=== PATIENT | female | born 1980 | race Two or more races ===

== ENCOUNTER 2016-10-19 20:04 | Emergency (ER) | payer SELFPAY ==
[~2016-10-19] VITALS: Ht 165.1 cm; Wt 74.8 kg
[2016-10-19 20:07] VITALS: BP 140/94
[2016-10-19] MEDS ORDERED: CLIN-44 PO (20:24)
[2016-10-19] MEDS ORDERED: HYDR-2679 PO (20:24)
[2016-10-19] MEDS ORDERED: NAPR500T8 PO (20:24)
--- NOTE | 2016-10-19 20:25 | PHYS DOC ---
Past Medical History Past Medical History: Diabetes-Type II Past Surgical History: No Surgical History Alcohol Use: None Drug Use: None Adult General Chief Complaint Chief Complaint: DENTAL PROBLEM HPI HPI Patient is a 36 year old female with history of diabetes type 2, who presents with dental pain and swelling for the last 2 weeks. Patient states she was seen by the dentist 2 weeks ago and was put on amoxicillin 500 mg which she still taking, she states the infection is not improving. Patient states she has a tooth that will be pulled out after the infection has cleared up. Review of Systems Review of Systems Constitutional: Denies fever or chills [] Eyes: Denies change in visual acuity, redness, or eye pain [] HENT: Dental pain and swelling Musculoskeletal: Denies back pain or joint pain [] Integument: Denies rash or skin lesions [] Neurologic: Denies headache, focal weakness or sensory changes [] Endocrine: Denies polyuria or polydipsia [] Allergies Allergies Allergies Coded Allergies Type Severity Reaction Last Updated Verified No Known Drug Allergies 01/11/14 No Physical Exam Physical Exam Constitutional: Well developed, well nourished, no acute distress, non-toxic appearance. [] HENT: Normocephalic, atraumatic, bilateral external ears normal, oropharynx moist, no oral exudates, nose normal. [] Left lower cheek is obviously swollen consistent with a mild dental abscess Approximately tooth #19 is broken. Small amount of dental caries noted on tooth #19. Left lower gums with mild erythema and swelling, no fluctuance. Skin: Warm, dry, no erythema, no rash. [] Back: No tenderness, no CVA tenderness. [] Extremities: No tenderness, no cyanosis, no clubbing, ROM intact, no edema. [] Neurologic: Alert and oriented X 3, normal motor function, normal sensory function, no focal deficits noted. [] Psychologic: Affect normal, judgement normal, mood normal. [] Current Patient Data Vital Signs Vital Signs Date Time Temp Pulse Resp B/P Pulse Ox O2 Delivery O2 Flow Rate FiO2 10/19/16 20:07 97.9 100 20 100 Room Air 97.9 EKG EKG [] Radiology/Procedures Radiology/Procedures [] Course & Med Decision Making Course & Med Decision Making Pertinent Labs and Imaging studies reviewed. (See chart for details) Patient has a dental abscess. She is currently on amoxicillin which she's taken for a couple days with no improvement. I will put her on a give clindamycin. She 'll be discharged with instructions to follow-up with her dentist next week. Charles Disclaimer Charles Disclaimer This electronic medical record was generated, in whole or in part, using a voice recognition dictation system. Departure Departure Impression: Primary Impression: Dental abscess Additional Impression: Dentalgia Disposition: HOME, SELF-CARE Condition: STABLE Referrals: UNKNOWN PCP NAME (PCP) follow up with your dentist next week Patient Instructions: Dental Abscess Additional Instructions: You were seen for a dental abscess. Please complete your current antibiotics.Stop the amoxicillin. Follow-up with your dentist as soon as you can. Scripts Naproxen 500 Mg Tablet.dr1 Tab PO BID #30 TAB Ref 2 Prov:LORENZA ROCHA APRN 10/19/16 Hydrocodone/Acetaminophen (Lortab 7.5-325 mg Tablet)1 Each Tablet1 Tab PO PRN Q6HRS PRN PAIN #20 TAB Ref 0 Prov:LORENZA ROCHA APRN 10/19/16 Clindamycin Hcl 150 Mg Capsule3 Cap PO TID #90 CAP Prov:LORENZA ROCHA APRN 10/19/16 Problem Qualifiers LORENZA ROCHA APRN Oct 19, 2016 20:25
== END 2016-10-19 20:30 | disposition home or self-care (01) ==
LOC: ER 20:04
DX: K04.7 Periapical abscess without sinus (principal); E11.9 Type 2 diabetes mellitus without complications
CPT/HCPCS: 99283

== ENCOUNTER 2016-12-18 14:56 | Inpatient (IN) | payer SELFPAY ==
[~2016-12-18] VITALS: Ht 165.1 cm; Wt 68.1 kg
[~2016-12-18 14:56] MED LIST: CLIN-44 PO; HYDR-2679 PO; NAPR500T8 PO
[2016-12-18] MEDS ORDERED: ONDANSETRON PF 4 MG/2 ML VIAL. IV ONE (15:30)
[2016-12-18] MEDS ORDERED: fentaNYL PF VIAL 100 MCG/2 ML VIAL IV PRN (15:30)
[2016-12-18 15:36] LABS: BASO # 0.1 x10^3/uL (0.0-0.2); BASO % 1 % (0-3); EOS % 1 % (0-3); HEMATOCRIT 35.4 % (36.0-47.0); HEMOGLOBIN 11.2 g/dL (12.0-15.5); LYMPH # 1.8 x10^3/uL (1.0-4.8); LYMPH % 27 % (24-48); MEAN CORPUSCULAR HEMOGLOBIN 23 pg (25-35); MEAN CORPUSCULAR HGB CONC 32 g/dL (31-37); MEAN CORPUSCULAR VOLUME 72 fL (79-100); MONO % 10 % (0-9); NEUT % 61 % (31-73); PLATELET COUNT 332 x10^3/uL (140-400); RED BLOOD COUNT 4.93 x10^6/uL (3.50-5.40); RED CELL DISTRIBUTION WIDTH 16.9 % (11.5-14.5); WHITE BLOOD COUNT 6.4 x10^3/uL (4.0-11.0)
[2016-12-18] MEDS: IV NORMAL SALINE 1000ML BAG 1,000 ML IV SCH ×4 (15:45→21:50)
[2016-12-18 15:58] LABS: ANISOCYTOSIS SLIGHT; HYPOCHROMIA MOD; MICROCYTOSIS MOD; PLT ESTIMATE ADEQUATE (ADEQUATE); POIKILOCYTOSIS SLIGHT
--- NOTE | 2016-12-18 16:06 | PHYS DOC ---
Past Medical History Past Medical History: Diabetes-Type II Past Surgical History: No Surgical History Alcohol Use: None Drug Use: None Adult General Chief Complaint Chief Complaint: NAUSEA/VOMITING/DIARRHA HPI HPI Patient is a 36 year old female who presents with complaint of nausea and vomiting. Patient states that she has been having worsening symptoms over the past 3 days. Patient states that she has history of type 2 diabetes mellitus currently on insulin therapy. Patient states that she has been out of her insulin for the past 2 weeks due to inability to afford the medication. Patient does admit to increasing polyuria and polydipsia. Patient states that she is very weak and tired and feels dehydrated at this time. Patient was brought to the emergency department by family after her glucometer at home reported her blood sugar to be "high." Patient denies any chest pain or abdominal pain currently. Patient does admit to worsening dyspnea on exertion. Patient denies any fevers. Review of Systems Review of Systems Constitutional: Denies fever or chills [] Eyes: Denies change in visual acuity, redness, or eye pain [] HENT: Denies nasal congestion or sore throat [] Respiratory: Shortness of breath [] Cardiovascular: Denies chest pain or edema [] GI: Nausea, vomiting, denies abdominal pain, bloody stools or diarrhea [] : Denies dysuria or hematuria [] Musculoskeletal: Denies back pain or joint pain [] Integument: Denies rash or skin lesions [] Neurologic: Denies headache, focal weakness or sensory changes [] Endocrine: Polyuria, polydipsia Current Medications Current Medications Current Medications Medications (Trade) Dose Ordered Sig/[facility] Start Time Stop Time Status Last Admin Dose Admin Acetaminophen (Tylenol) 650 mg PRN Q4HRS PRN 12/18/16 17:30 12/19/16 17:29 UNV Fentanyl Citrate (Fentanyl 2ml Vial) 50 mcg PRN Q15MIN PRN 12/18/16 15:30 12/19/16 15:29 Insulin Human Regular 150 ml @ 0 mls/hr 1X ONCE 12/18/16 16:45 12/18/16 16:46 DC 12/18/16 17:23 5.2 MLS/HR Ondansetron HCl (Zofran) 4 mg PRN Q8HRS PRN 12/18/16 17:30 12/19/16 17:29 UNV Sodium Chloride 1,000 ml @ 150 mls/hr Q6H40M 12/18/16 17:21 12/19/16 17:20 UNV Allergies Allergies Allergies Coded Allergies Type Severity Reaction Last Updated Verified No Known Drug Allergies 01/11/14 No Physical Exam Physical Exam Constitutional: Alert, afebrile, appears ill. [] HENT: Normocephalic, atraumatic, bilateral external ears normal, oropharynx dry , no oral exudates, nose normal. [] Eyes: PERRLA, EOMI, conjunctiva normal, no discharge. [] Neck: Normal range of motion, no tenderness, supple, no stridor. [] Cardiovascular: Tachycardia, regular rhythm, no murmur [] Lungs & Thorax: Bilateral breath sounds clear to auscultation [] Abdomen: Bowel sounds normal, soft, no tenderness, no masses, no pulsatile masses. [] Skin: Warm, dry, no erythema, no rash. [] Back: No tenderness, no CVA tenderness. [] Extremities: No tenderness, no cyanosis, no clubbing, ROM intact, no edema. [] Neurologic: Alert and oriented X 3, normal motor function, normal sensory function, no focal deficits noted. [] Current Patient Data Vital Signs Vital Signs Date Time Temp Pulse Resp B/P (MAP) Pulse Ox O2 Delivery O2 Flow Rate FiO2 12/18/16 15:08 98.7 123 16 148/95 (112) 100 Room Air 98.7 Lab Values Laboratory Tests Test 12/18/16 15:10 12/18/16 15:11 12/18/16 15:47 12/18/16 17:13 White Blood Count 6.4 x10^3/uL (4.0-11.0) Red Blood Count 4.93 x10^6/uL (3.50-5.40) Hemoglobin 11.2 g/dL (12.0-15.5) L Hematocrit 35.4 % (36.0-47.0) L Mean Corpuscular Volume 72 fL (79-100) L Mean Corpuscular Hemoglobin 23 pg (25-35) L Mean Corpuscular Hemoglobin Concent 32 g/dL (31-37) Red Cell Distribution Width 16.9 % (11.5-14.5) H Platelet Count 332 x10^3/uL (140-400) Neutrophils (%) (Auto) 61 % (31-73) Lymphocytes (%) (Auto) 27 % (24-48) Monocytes (%) (Auto) 10 % (0-9) H Eosinophils (%) (Auto) 1 % (0-3) Basophils (%) (Auto) 1 % (0-3) Neutrophils # (Auto) 3.9 x10^3uL (1.8-7.7) Lymphocytes # (Auto) 1.8 x10^3/uL (1.0-4.8) Monocytes # (Auto) 0.6 x10^3/uL (0.0-1.1) Eosinophils # (Auto) 0.1 x10^3/uL (0.0-0.7) Basophils # (Auto) 0.1 x10^3/uL (0.0-0.2) Platelet Estimate Adequate (ADEQUATE) Hypochromasia Mod Poikilocytosis Slight Anisocytosis Slight Microcytosis Mod Sodium Level 134 mmol/L (136-145) L Potassium Level 3.5 mmol/L (3.5-5.1) Chloride Level 99 mmol/L (98-107) Carbon Dioxide Level 21 mmol/L (21-32) Anion Gap 14 (6-14) Blood Urea Nitrogen 8 mg/dL (7-20) Creatinine 0.8 mg/dL (0.6-1.0) Estimated GFR (Cockcroft-Gault) 81.2 BUN/Creatinine Ratio 10 (6-20) Glucose Level 621 mg/dL (70-99) *H Serum Osmolality 306 mOsm/Kg (279-304) H Calcium Level 8.6 mg/dL (8.5-10.1) Total Bilirubin 0.5 mg/dL (0.2-1.0) Aspartate Amino Transferase (AST) 20 U/L (15-37) Alanine Aminotransferase (ALT) 21 U/L (14-59) Alkaline Phosphatase 95 U/L (46-116) Total Protein 8.0 g/dL (6.4-8.2) Albumin 3.3 g/dL (3.4-5.0) L Albumin/Globulin Ratio 0.7 (1.0-1.7) L Glucose (Fingerstick) 547 mg/dL (70-99) *H 319 mg/dL (70-99) H Urine Collection Type Unknown Urine Color Yellow Urine Clarity Clear Urine pH 6.5 Urine Specific [place] >=1.030 Urine Protein Negative mg/dL (NEG-TRACE) Urine Glucose (UA) >=1000 mg/dL (NEG) Urine Ketones (Stick) Negative mg/dL (NEG) Urine Blood Trace (NEG) Urine Nitrite Negative (NEG) Urine Bilirubin Negative (NEG) Urine Urobilinogen Dipstick 0.2 mg/dL (0.2 mg/dL) Urine Leukocyte Esterase Negative (NEG) Urine RBC 1-2 /HPF (0-2) Urine WBC 1-4 /HPF (0-4) Urine Squamous Epithelial Cells Few /LPF Urine Bacteria 0 /HPF (0-FEW) Urine Yeast Present /HPF Laboratory Tests 12/18/16 15:10 Laboratory Tests 12/18/16 15:10 EKG EKG Interpreted by me: Heart rate 97, sinus tachycardia, normal intervals, normal axis, no acute ST/T-wave abnormalities present [] Radiology/Procedures Radiology/Procedures Not performed [] Course & Med Decision Making Course & Med Decision Making Pertinent Labs and Imaging studies reviewed. (See chart for details) Patient was started on 2 L of IV fluids and IV Zofran which helped with improvement in symptoms. Patient's blood sugar was found be critically elevated above 600. The patient will be started on IV insulin drip for control of blood sugars. I spoke with Dr. Guzman who accepted care patient in hospital. Dragon Disclaimer Dragon Disclaimer This electronic medical record was generated, in whole or in part, using a voice recognition dictation system. Departure Departure Impression: Primary Impression: Uncontrolled diabetes mellitus Additional Impressions: Nausea and vomiting Dehydration Disposition: ADMITTED INPATIENT Admitting Physician: Javed Guzman Condition: GUARDED Referrals: UNKNOWN PCP NAME (PCP) Problem Qualifiers Primary Impression: Uncontrolled diabetes mellitus Diabetes mellitus type: type 2 Diabetes mellitus complication status: with hyperglycemia Diabetes mellitus penitentiary insulin use: with penitentiary use Qualified Codes: E11.65 - Type 2 diabetes mellitus with hyperglycemia; Z79.4 - residential (current) use of insulin Additional Impressions: Nausea and vomiting Vomiting type: unspecified Vomiting Intractability: unspecified Qualified Codes: R11.2 - Nausea with vomiting, unspecified KATHERINE DUFFY MD December 18, 2016 16:05
[2016-12-18 16:08] LABS: ALBUMIN 3.3 g/dL (3.4-5.0); ALBUMIN/GLOBULIN RATIO 0.7 (1.0-1.7); CALCIUM 8.6 mg/dL (8.5-10.1); CREATININE 0.8 mg/dL (0.6-1.0); GFR 81.2; POTASSIUM 3.5 mmol/L (3.5-5.1); TOTAL BILIRUBIN 0.5 mg/dL (0.2-1.0)
[2016-12-18] MEDS ORDERED: INSULIN,REGULAR 150 UNIT DRIP 150 ML IV ONE (16:45)
[2016-12-18 17:03] LABS: BILIRUBIN,URINE NEGATIVE (NEG); GLUCOSE,URINE >=1000 mg/dL (NEG); NITRITE,URINE NEGATIVE (NEG); PH,URINE 6.5; PROTEIN,URINE NEGATIVE (NEG-TRACE); UROBILINOGEN,URINE 0.2 mg/dL (0.2 mg/dL)
[2016-12-18 17:10] LABS: BACTERIA,URINE 0 /HPF (0-FEW); SQUAMOUS EPITHELIAL CELL,UR FEW /LPF
[2016-12-18 17:11] LABS: YEAST,URINE PRESENT /HPF
[2016-12-18] MEDS ORDERED: ONDANSETRON PF 4 MG/2 ML VIAL. IV PRN (17:30)
[2016-12-18] MEDS ORDERED: ACETAMINOPHEN 325 MG TABLET. PO PRN (17:30)
[2016-12-18 19:25] VITALS: BP 119/79
[2016-12-18] MEDS ORDERED: DEXTROSE 50% 25 GM / 50ML DISP.SYRIN. IV PRN (19:45)
[2016-12-18 23:48] VITALS: BP 110/77
[2016-12-18 23:52] VITALS: BP 119/79
[2016-12-19] MEDS: IV NORMAL SALINE 1000ML BAG 1,000 ML IV SCH ×5 (00:01→18:41)
[2016-12-19] MEDS ORDERED: CALC200T3 PO (00:14)
[2016-12-19] MEDS ORDERED: INSU100C4 SQ (00:18)
[2016-12-19 03:45] VITALS: BP 119/85
[2016-12-19 04:51] LABS: BASO # 0.1 x10^3/uL (0.0-0.2); BASO % 1 % (0-3); EOS % 2 % (0-3); HEMATOCRIT 32.1 % (36.0-47.0); HEMOGLOBIN 10.4 g/dL (12.0-15.5); LYMPH # 2.5 x10^3/uL (1.0-4.8); LYMPH % 38 % (24-48); MEAN CORPUSCULAR HEMOGLOBIN 23 pg (25-35); MEAN CORPUSCULAR HGB CONC 33 g/dL (31-37); MEAN CORPUSCULAR VOLUME 70 fL (79-100); MONO % 10 % (0-9); NEUT % 49 % (31-73); PLATELET COUNT 315 x10^3/uL (140-400); RED CELL DISTRIBUTION WIDTH 16.7 % (11.5-14.5); WHITE BLOOD COUNT 6.6 x10^3/uL (4.0-11.0)
[2016-12-19 05:06] LABS: CALCIUM 8.1 mg/dL (8.5-10.1); CREATININE 0.5 mg/dL (0.6-1.0); GFR 139.6; POTASSIUM 3.6 mmol/L (3.5-5.1)
--- NOTE | 2016-12-19 06:21 | PDOC1 ---
History and Physical Date of Admission Date of Admission 12/18/16 late entry Current Problem List Problem List Problems Medical Problems: (1) Dehydration Status: Acute (2) Hyperosmolar non-ketotic state in patient with type 2 diabetes mellitus Status: Acute (3) Nausea and vomiting Status: Acute (4) Uncontrolled diabetes mellitus Status: Acute Current Medications Current Medications Current Medications Medications (Trade) Dose Ordered Sig/[facility] Start Time Stop Time Status Last Admin Dose Admin Acetaminophen (Tylenol) 650 mg PRN Q4HRS PRN 12/18/16 17:30 12/19/16 17:29 Dextrose (Dextrose 50%-Water Syringe) 12.5 gm PRN Q15MIN PRN 12/18/16 19:45 Fentanyl Citrate (Fentanyl 2ml Vial) 50 mcg PRN Q15MIN PRN 12/18/16 15:30 12/19/16 15:29 Insulin Aspart (NovoLOG) 0-9 UNITS TIDWMEALS 12/19/16 08:00 Insulin Human Regular 150 ml @ 0 mls/hr 1X ONCE 12/18/16 16:45 12/18/16 19:44 DC 12/18/16 17:23 5.2 MLS/HR Ondansetron HCl (Zofran) 4 mg PRN Q8HRS PRN 12/18/16 17:30 12/19/16 17:29 Sodium Chloride 1,000 ml @ 125 mls/hr Q8H 12/18/16 19:45 12/19/16 03:56 125 MLS/HR Allergies Allergies Allergies Coded Allergies Type Severity Reaction Last Updated Verified No Known Drug Allergies 01/11/14 No ROS Review of System CONSTITUTIONAL: No fever or chills EYES: No recent changes SKIN: No rash or itching CARDIOVASCULAR: No chest pain, syncope, palpitations, or edema RESPIRATORY: No SOB or cough GASTROINTESTINAL: nausea, vomiting or abdominal pain NEUROLOGICAL: No headaches or weakness ENDOCRINE: No cold or heat intolerance GENITOURINARY: No urgency or frequency of urination MUSCULOSKELETAL: No back pain or joint pain LYMPHATICS: No enlarged lymph nodes PSYCHIATRIC: No anxiety or depression Physical Exam Physical Exam GEN.: No apparent distress. Alert and oriented. HEENT: Head is normocephalic, atraumatic NECK: Supple. LUNGS: Clear to auscultation. HEART: RRR, S1, S2 present. Peripheral pulses intact ABDOMEN: Soft, nontender. Positive bowel sounds. EXTREMITIES: Without any cyanosis. NEUROLOGIC: Normal speech, normal tone PSYCHIATRIC: Normal affect, normal mood. SKIN: No ulcerations Vitals Vitals Vital Signs Date Time Temp Pulse Resp B/P (MAP) Pulse Ox O2 Delivery O2 Flow Rate FiO2 12/19/16 03:45 97.4 91 18 119/85 (96) 96 Room Air 97.4 Labs Labs Laboratory Tests Test 12/18/16 15:10 12/18/16 15:11 12/18/16 15:47 12/18/16 17:13 White Blood Count 6.4 x10^3/uL (4.0-11.0) Red Blood Count 4.93 x10^6/uL (3.50-5.40) Hemoglobin 11.2 g/dL (12.0-15.5) Hematocrit 35.4 % (36.0-47.0) Mean Corpuscular Volume 72 fL (79-100) Mean Corpuscular Hemoglobin 23 pg (25-35) Mean Corpuscular Hemoglobin Concent 32 g/dL (31-37) Red Cell Distribution Width 16.9 % (11.5-14.5) Platelet Count 332 x10^3/uL (140-400) Neutrophils (%) (Auto) 61 % (31-73) Lymphocytes (%) (Auto) 27 % (24-48) Monocytes (%) (Auto) 10 % (0-9) Eosinophils (%) (Auto) 1 % (0-3) Basophils (%) (Auto) 1 % (0-3) Neutrophils # (Auto) 3.9 x10^3uL (1.8-7.7) Lymphocytes # (Auto) 1.8 x10^3/uL (1.0-4.8) Monocytes # (Auto) 0.6 x10^3/uL (0.0-1.1) Eosinophils # (Auto) 0.1 x10^3/uL (0.0-0.7) Basophils # (Auto) 0.1 x10^3/uL (0.0-0.2) Platelet Estimate Adequate (ADEQUATE) Hypochromasia Mod Poikilocytosis Slight Anisocytosis Slight Microcytosis Mod Sodium Level 134 mmol/L (136-145) Potassium Level 3.5 mmol/L (3.5-5.1) Chloride Level 99 mmol/L (98-107) Carbon Dioxide Level 21 mmol/L (21-32) Anion Gap 14 (6-14) Blood Urea Nitrogen 8 mg/dL (7-20) Creatinine 0.8 mg/dL (0.6-1.0) Estimated GFR (Cockcroft-Gault) 81.2 BUN/Creatinine Ratio 10 (6-20) Glucose Level 621 mg/dL (70-99) Serum Osmolality 306 mOsm/Kg (279-304) Calcium Level 8.6 mg/dL (8.5-10.1) Total Bilirubin 0.5 mg/dL (0.2-1.0) Aspartate Amino Transf (AST/SGOT) 20 U/L (15-37) Alanine Aminotransferase (ALT/SGPT) 21 U/L (14-59) Alkaline Phosphatase 95 U/L (46-116) Total Protein 8.0 g/dL (6.4-8.2) Albumin 3.3 g/dL (3.4-5.0) Albumin/Globulin Ratio 0.7 (1.0-1.7) Glucose (Fingerstick) 547 mg/dL (70-99) 319 mg/dL (70-99) Urine Collection Type Unknown Urine Color Yellow Urine Clarity Clear Urine pH 6.5 Urine Specific [place] >=1.030 Urine Protein Negative mg/dL (NEG-TRACE) Urine Glucose (UA) >=1000 mg/dL (NEG) Urine Ketones (Stick) Negative mg/dL (NEG) Urine Blood Trace (NEG) Urine Nitrite Negative (NEG) Urine Bilirubin Negative (NEG) Urine Urobilinogen Dipstick 0.2 mg/dL (0.2 mg/dL) Urine Leukocyte Esterase Negative (NEG) Urine RBC 1-2 /HPF (0-2) Urine WBC 1-4 /HPF (0-4) Urine Squamous Epithelial Cells Few /LPF Urine Bacteria 0 /HPF (0-FEW) Urine Yeast Present /HPF Test 12/18/16 18:28 12/18/16 19:31 12/18/16 23:29 12/19/16 03:37 Glucose (Fingerstick) 240 mg/dL (70-99) 198 mg/dL (70-99) 214 mg/dL (70-99) 229 mg/dL (70-99) Test 12/19/16 04:20 White Blood Count 6.6 x10^3/uL (4.0-11.0) Red Blood Count 4.60 x10^6/uL (3.50-5.40) Hemoglobin 10.4 g/dL (12.0-15.5) Hematocrit 32.1 % (36.0-47.0) Mean Corpuscular Volume 70 fL (79-100) Mean Corpuscular Hemoglobin 23 pg (25-35) Mean Corpuscular Hemoglobin Concent 33 g/dL (31-37) Red Cell Distribution Width 16.7 % (11.5-14.5) Platelet Count 315 x10^3/uL (140-400) Neutrophils (%) (Auto) 49 % (31-73) Lymphocytes (%) (Auto) 38 % (24-48) Monocytes (%) (Auto) 10 % (0-9) Eosinophils (%) (Auto) 2 % (0-3) Basophils (%) (Auto) 1 % (0-3) Neutrophils # (Auto) 3.2 x10^3uL (1.8-7.7) Lymphocytes # (Auto) 2.5 x10^3/uL (1.0-4.8) Monocytes # (Auto) 0.7 x10^3/uL (0.0-1.1) Eosinophils # (Auto) 0.1 x10^3/uL (0.0-0.7) Basophils # (Auto) 0.1 x10^3/uL (0.0-0.2) Sodium Level 140 mmol/L (136-145) Potassium Level 3.6 mmol/L (3.5-5.1) Chloride Level 107 mmol/L (98-107) Carbon Dioxide Level 23 mmol/L (21-32) Anion Gap 10 (6-14) Blood Urea Nitrogen 7 mg/dL (7-20) Creatinine 0.5 mg/dL (0.6-1.0) Estimated GFR (Cockcroft-Gault) 139.6 Glucose Level 215 mg/dL (70-99) Calcium Level 8.1 mg/dL (8.5-10.1) Laboratory Tests Test 12/18/16 15:10 12/18/16 15:11 12/18/16 15:47 12/18/16 17:13 White Blood Count 6.4 x10^3/uL (4.0-11.0) Red Blood Count 4.93 x10^6/uL (3.50-5.40) Hemoglobin 11.2 g/dL (12.0-15.5) Hematocrit 35.4 % (36.0-47.0) Mean Corpuscular Volume 72 fL (79-100) Mean Corpuscular Hemoglobin 23 pg (25-35) Mean Corpuscular Hemoglobin Concent 32 g/dL (31-37) Red Cell Distribution Width 16.9 % (11.5-14.5) Platelet Count 332 x10^3/uL (140-400) Neutrophils (%) (Auto) 61 % (31-73) Lymphocytes (%) (Auto) 27 % (24-48) Monocytes (%) (Auto) 10 % (0-9) Eosinophils (%) (Auto) 1 % (0-3) Basophils (%) (Auto) 1 % (0-3) Neutrophils # (Auto) 3.9 x10^3uL (1.8-7.7) Lymphocytes # (Auto) 1.8 x10^3/uL (1.0-4.8) Monocytes # (Auto) 0.6 x10^3/uL (0.0-1.1) Eosinophils # (Auto) 0.1 x10^3/uL (0.0-0.7) Basophils # (Auto) 0.1 x10^3/uL (0.0-0.2) Platelet Estimate Adequate (ADEQUATE) Hypochromasia Mod Poikilocytosis Slight Anisocytosis Slight Microcytosis Mod Sodium Level 134 mmol/L (136-145) Potassium Level 3.5 mmol/L (3.5-5.1) Chloride Level 99 mmol/L (98-107) Carbon Dioxide Level 21 mmol/L (21-32) Anion Gap 14 (6-14) Blood Urea Nitrogen 8 mg/dL (7-20) Creatinine 0.8 mg/dL (0.6-1.0) Estimated GFR (Cockcroft-Gault) 81.2 BUN/Creatinine Ratio 10 (6-20) Glucose Level 621 mg/dL (70-99) Serum Osmolality 306 mOsm/Kg (279-304) Calcium Level 8.6 mg/dL (8.5-10.1) Total Bilirubin 0.5 mg/dL (0.2-1.0) Aspartate Amino Transf (AST/SGOT) 20 U/L (15-37) Alanine Aminotransferase (ALT/SGPT) 21 U/L (14-59) Alkaline Phosphatase 95 U/L (46-116) Total Protein 8.0 g/dL (6.4-8.2) Albumin 3.3 g/dL (3.4-5.0) Albumin/Globulin Ratio 0.7 (1.0-1.7) Glucose (Fingerstick) 547 mg/dL (70-99) 319 mg/dL (70-99) Urine Collection Type Unknown Urine Color Yellow Urine Clarity Clear Urine pH 6.5 Urine Specific [place] >=1.030 Urine Protein Negative mg/dL (NEG-TRACE) Urine Glucose (UA) >=1000 mg/dL (NEG) Urine Ketones (Stick) Negative mg/dL (NEG) Urine Blood Trace (NEG) Urine Nitrite Negative (NEG) Urine Bilirubin Negative (NEG) Urine Urobilinogen Dipstick 0.2 mg/dL (0.2 mg/dL) Urine Leukocyte Esterase Negative (NEG) Urine RBC 1-2 /HPF (0-2) Urine WBC 1-4 /HPF (0-4) Urine Squamous Epithelial Cells Few /LPF Urine Bacteria 0 /HPF (0-FEW) Urine Yeast Present /HPF Test 12/18/16 18:28 12/18/16 19:31 12/18/16 23:29 12/19/16 03:37 Glucose (Fingerstick) 240 mg/dL (70-99) 198 mg/dL (70-99) 214 mg/dL (70-99) 229 mg/dL (70-99) Test 12/19/16 04:20 White Blood Count 6.6 x10^3/uL (4.0-11.0) Red Blood Count 4.60 x10^6/uL (3.50-5.40) Hemoglobin 10.4 g/dL (12.0-15.5) Hematocrit 32.1 % (36.0-47.0) Mean Corpuscular Volume 70 fL (79-100) Mean Corpuscular Hemoglobin 23 pg (25-35) Mean Corpuscular Hemoglobin Concent 33 g/dL (31-37) Red Cell Distribution Width 16.7 % (11.5-14.5) Platelet Count 315 x10^3/uL (140-400) Neutrophils (%) (Auto) 49 % (31-73) Lymphocytes (%) (Auto) 38 % (24-48) Monocytes (%) (Auto) 10 % (0-9) Eosinophils (%) (Auto) 2 % (0-3) Basophils (%) (Auto) 1 % (0-3) Neutrophils # (Auto) 3.2 x10^3uL (1.8-7.7) Lymphocytes # (Auto) 2.5 x10^3/uL (1.0-4.8) Monocytes # (Auto) 0.7 x10^3/uL (0.0-1.1) Eosinophils # (Auto) 0.1 x10^3/uL (0.0-0.7) Basophils # (Auto) 0.1 x10^3/uL (0.0-0.2) Sodium Level 140 mmol/L (136-145) Potassium Level 3.6 mmol/L (3.5-5.1) Chloride Level 107 mmol/L (98-107) Carbon Dioxide Level 23 mmol/L (21-32) Anion Gap 10 (6-14) Blood Urea Nitrogen 7 mg/dL (7-20) Creatinine 0.5 mg/dL (0.6-1.0) Estimated GFR (Cockcroft-Gault) 139.6 Glucose Level 215 mg/dL (70-99) Calcium Level 8.1 mg/dL (8.5-10.1) VTE Prophylaxis Ordered VTE Prophylaxis Devices: Yes VTE Pharmacological Prophylaxi: No MAE ESCUDERO MD December 19, 2016 06:21
[2016-12-19 07:00] VITALS: BP 117/85
[2016-12-19] MEDS ORDERED: HYDROcodone/APAP 7.5/325MG 1 TAB TABLET PO PRN (07:00)
[2016-12-19] MEDS ORDERED: CALCIUM CARBONATE 500 MG TAB.CHEW PO PRN (07:00)
[2016-12-19] MEDS ORDERED: NON FORMULARY ITEM (Insulin Aspart (Novolog) 100 UNIT) SQ SCH (07:30)
[2016-12-19] MEDS: NAPROXEN 500 MG TABLET PO SCH ×2 (08:24→17:03)
[2016-12-19] MEDS: INSULIN ASPART 300 UNITS/3 ML INSULN.PEN SQ SCH ×3 (08:25→17:05)
--- NOTE | 2016-12-19 10:54 | EKG ---
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
[2016-12-19 11:00] VITALS: BP 117/85
[2016-12-19] MEDS ORDERED: DOCUSATE SODIUM 100 MG CAPSULE. PO PRN (11:15)
[2016-12-19] MEDS ORDERED: MORPHINE SULFATE 2 MG/ML DISP.SYRIN. IV PRN (11:15)
[2016-12-19] MEDS ORDERED: ACETAMINOPHEN 325 MG TABLET. PO PRN (11:15)
[2016-12-19] MEDS ORDERED: ONDANSETRON PF 4 MG/2 ML VIAL. IV PRN (11:15)
[2016-12-19] MEDS ORDERED: traMADol 50 MG TABLET PO PRN (11:15)
[2016-12-19] MEDS ORDERED: hydrALAZINE 20 MG/ML VIAL. IVP PRN (11:15)
--- NOTE | 2016-12-19 12:29 | HP ---
ADMIT DATE: 12/18/2016 CHIEF COMPLAINT: Nausea, vomiting, and diarrhea. HISTORY OF THE PRESENT ILLNESS: A 36-year-old female patient with prior history of recent diagnosis of diabetes mellitus, on insulin, presented to the ER with complaints of nausea, vomiting, and abdominal discomfort. Symptoms were slowly getting worse for the last couple of days. The patient states she was admitted to the hospital 3 times in the past, and she was diagnosed with diabetes mellitus, on insulin. However, due to some financial issues, she was not able to take medications for 2 weeks. She denies any other symptoms such as fevers, chills, or shortness of breath. PAST MEDICAL HISTORY: Type 2 diabetes. PAST SURGICALL HISTORY: None. PERSONAL HISTORY: No smoking, no alcohol, and no drug abuse. ALLERGIES: NKDA. FAMILY HISTORY: Unknown to the patient. REVIEW OF SYSTEMS: Please see my electronic H and P. PHYSICAL EXAMINATION: Please see my electronic H and P. LABORATORY FINDINGS: WBC is 6.4, hemoglobin is 11.2, platelets 323. Chemistry: Sodium 134, potassium is, chloride is 99, carbon dioxide 21, anion gap is 14, BUN 8, creatinine 0.8, and glucose ____. Urine, ketones negative, nitrites negative. studies not done. ASSESSMENT AND PLAN: 1. Uncontrolled type 2 diabetes mellitus, insulin dependent, with hyperglycemia, no ketosis, no metabolic acidosis. 2. Dehydration. PLAN: 1. The patient has been admitted to the hospital for uncontrolled diabetes. She has been placed on an insulin drip. We will monitor blood sugars every 1 hour as per the protocol. If the blood glucose improves to less than 250, we will place a home dose of long-acting insulin, with sliding scale insulin. However, metabolic panel did not show any ketoacidosis, hba1c pending. 2. Continue IV hydration. 3. Social Work consult for medication help at discharge. 4. Anticipatory discharge in the a.m. if the patient's symptoms improve. 5. Add CBC, BMP. 6. Sliding Scale insulin. MAE ESCUDERO MD DR: MERCEDEZ/manny JOB#: [id number] / [id number] MTDD
[2016-12-19] MEDS ORDERED: MECLIZINE HCL 12.5 MG TABLET. PO PRN (13:15)
--- NOTE | 2016-12-19 13:19 | PDOC ---
PROGRESS NOTES Chief Complaint Chief Complaint 1. Uncontrolled type 1 DM 2. Dehydration. 3. mild malnutrition 4. microcytic anemia plan: add levemir 40u qhs, pt takes 50u at home. no aspart at home ssi cont ivf check labs for anemia hba1c pending dvt ppx educated pt for DM constrol for 10min meclazine prn sw consulted for medicaid application History of Present Illness History of Present Illness still mild vertigo when closing eyes or moving head glucose is ok, off insulin drip Vitals Vitals Vital Signs Date Time Temp Pulse Resp B/P (MAP) Pulse Ox O2 Delivery O2 Flow Rate FiO2 12/19/16 11:00 98.0 85 20 117/85 (96) 98 Room Air 98.0 Physical Exam General: Alert, Oriented X3, Cooperative Heart: Regular rate, Normal S1, Normal S2 Lungs: Clear Abdomen: Normal bowel sounds, Soft Extremities: No clubbing Labs LABS Laboratory Tests Test 12/18/16 15:10 12/18/16 15:11 12/18/16 15:47 12/18/16 17:13 White Blood Count 6.4 x10^3/uL (4.0-11.0) Red Blood Count 4.93 x10^6/uL (3.50-5.40) Hemoglobin 11.2 g/dL (12.0-15.5) Hematocrit 35.4 % (36.0-47.0) Mean Corpuscular Volume 72 fL (79-100) Mean Corpuscular Hemoglobin 23 pg (25-35) Mean Corpuscular Hemoglobin Concent 32 g/dL (31-37) Red Cell Distribution Width 16.9 % (11.5-14.5) Platelet Count 332 x10^3/uL (140-400) Neutrophils (%) (Auto) 61 % (31-73) Lymphocytes (%) (Auto) 27 % (24-48) Monocytes (%) (Auto) 10 % (0-9) Eosinophils (%) (Auto) 1 % (0-3) Basophils (%) (Auto) 1 % (0-3) Neutrophils # (Auto) 3.9 x10^3uL (1.8-7.7) Lymphocytes # (Auto) 1.8 x10^3/uL (1.0-4.8) Monocytes # (Auto) 0.6 x10^3/uL (0.0-1.1) Eosinophils # (Auto) 0.1 x10^3/uL (0.0-0.7) Basophils # (Auto) 0.1 x10^3/uL (0.0-0.2) Platelet Estimate Adequate (ADEQUATE) Hypochromasia Mod Poikilocytosis Slight Anisocytosis Slight Microcytosis Mod Sodium Level 134 mmol/L (136-145) Potassium Level 3.5 mmol/L (3.5-5.1) Chloride Level 99 mmol/L (98-107) Carbon Dioxide Level 21 mmol/L (21-32) Anion Gap 14 (6-14) Blood Urea Nitrogen 8 mg/dL (7-20) Creatinine 0.8 mg/dL (0.6-1.0) Estimated GFR (Cockcroft-Gault) 81.2 BUN/Creatinine Ratio 10 (6-20) Glucose Level 621 mg/dL (70-99) Serum Osmolality 306 mOsm/Kg (279-304) Calcium Level 8.6 mg/dL (8.5-10.1) Total Bilirubin 0.5 mg/dL (0.2-1.0) Aspartate Amino Transf (AST/SGOT) 20 U/L (15-37) Alanine Aminotransferase (ALT/SGPT) 21 U/L (14-59) Alkaline Phosphatase 95 U/L (46-116) Total Protein 8.0 g/dL (6.4-8.2) Albumin 3.3 g/dL (3.4-5.0) Albumin/Globulin Ratio 0.7 (1.0-1.7) Glucose (Fingerstick) 547 mg/dL (70-99) 319 mg/dL (70-99) Urine Collection Type Unknown Urine Color Yellow Urine Clarity Clear Urine pH 6.5 Urine Specific Kouts >=1.030 Urine Protein Negative mg/dL (NEG-TRACE) Urine Glucose (UA) >=1000 mg/dL (NEG) Urine Ketones (Stick) Negative mg/dL (NEG) Urine Blood Trace (NEG) Urine Nitrite Negative (NEG) Urine Bilirubin Negative (NEG) Urine Urobilinogen Dipstick 0.2 mg/dL (0.2 mg/dL) Urine Leukocyte Esterase Negative (NEG) Urine RBC 1-2 /HPF (0-2) Urine WBC 1-4 /HPF (0-4) Urine Squamous Epithelial Cells Few /LPF Urine Bacteria 0 /HPF (0-FEW) Urine Yeast Present /HPF Test 12/18/16 18:28 12/18/16 19:31 12/18/16 23:29 12/19/16 03:37 Glucose (Fingerstick) 240 mg/dL (70-99) 198 mg/dL (70-99) 214 mg/dL (70-99) 229 mg/dL (70-99) Test 12/19/16 04:20 12/19/16 07:36 12/19/16 10:56 White Blood Count 6.6 x10^3/uL (4.0-11.0) Red Blood Count 4.60 x10^6/uL (3.50-5.40) Hemoglobin 10.4 g/dL (12.0-15.5) Hematocrit 32.1 % (36.0-47.0) Mean Corpuscular Volume 70 fL (79-100) Mean Corpuscular Hemoglobin 23 pg (25-35) Mean Corpuscular Hemoglobin Concent 33 g/dL (31-37) Red Cell Distribution Width 16.7 % (11.5-14.5) Platelet Count 315 x10^3/uL (140-400) Neutrophils (%) (Auto) 49 % (31-73) Lymphocytes (%) (Auto) 38 % (24-48) Monocytes (%) (Auto) 10 % (0-9) Eosinophils (%) (Auto) 2 % (0-3) Basophils (%) (Auto) 1 % (0-3) Neutrophils # (Auto) 3.2 x10^3uL (1.8-7.7) Lymphocytes # (Auto) 2.5 x10^3/uL (1.0-4.8) Monocytes # (Auto) 0.7 x10^3/uL (0.0-1.1) Eosinophils # (Auto) 0.1 x10^3/uL (0.0-0.7) Basophils # (Auto) 0.1 x10^3/uL (0.0-0.2) Sodium Level 140 mmol/L (136-145) Potassium Level 3.6 mmol/L (3.5-5.1) Chloride Level 107 mmol/L (98-107) Carbon Dioxide Level 23 mmol/L (21-32) Anion Gap 10 (6-14) Blood Urea Nitrogen 7 mg/dL (7-20) Creatinine 0.5 mg/dL (0.6-1.0) Estimated GFR (Cockcroft-Gault) 139.6 Glucose Level 215 mg/dL (70-99) Calcium Level 8.1 mg/dL (8.5-10.1) Glucose (Fingerstick) 240 mg/dL (70-99) 148 mg/dL (70-99) Review of Systems Review of Systems no fever, chills, sob or chest pain Assessment and Plan Assessmemt and Plan Problems Medical Problems: (1) Dehydration Status: Acute (2) Hyperosmolar non-ketotic state in patient with type 2 diabetes mellitus Status: Acute (3) Nausea and vomiting Status: Acute (4) Uncontrolled diabetes mellitus Status: Acute Problems: Comment Review of Relevant I have reviewed the following items zari (where applicable) has been applied. Labs Laboratory Tests Test 12/18/16 15:10 12/18/16 15:11 12/18/16 15:47 12/18/16 17:13 White Blood Count 6.4 x10^3/uL (4.0-11.0) Red Blood Count 4.93 x10^6/uL (3.50-5.40) Hemoglobin 11.2 g/dL (12.0-15.5) Hematocrit 35.4 % (36.0-47.0) Mean Corpuscular Volume 72 fL (79-100) Mean Corpuscular Hemoglobin 23 pg (25-35) Mean Corpuscular Hemoglobin Concent 32 g/dL (31-37) Red Cell Distribution Width 16.9 % (11.5-14.5) Platelet Count 332 x10^3/uL (140-400) Neutrophils (%) (Auto) 61 % (31-73) Lymphocytes (%) (Auto) 27 % (24-48) Monocytes (%) (Auto) 10 % (0-9) Eosinophils (%) (Auto) 1 % (0-3) Basophils (%) (Auto) 1 % (0-3) Neutrophils # (Auto) 3.9 x10^3uL (1.8-7.7) Lymphocytes # (Auto) 1.8 x10^3/uL (1.0-4.8) Monocytes # (Auto) 0.6 x10^3/uL (0.0-1.1) Eosinophils # (Auto) 0.1 x10^3/uL (0.0-0.7) Basophils # (Auto) 0.1 x10^3/uL (0.0-0.2) Platelet Estimate Adequate (ADEQUATE) Hypochromasia Mod Poikilocytosis Slight Anisocytosis Slight Microcytosis Mod Sodium Level 134 mmol/L (136-145) Potassium Level 3.5 mmol/L (3.5-5.1) Chloride Level 99 mmol/L (98-107) Carbon Dioxide Level 21 mmol/L (21-32) Anion Gap 14 (6-14) Blood Urea Nitrogen 8 mg/dL (7-20) Creatinine 0.8 mg/dL (0.6-1.0) Estimated GFR (Cockcroft-Gault) 81.2 BUN/Creatinine Ratio 10 (6-20) Glucose Level 621 mg/dL (70-99) Serum Osmolality 306 mOsm/Kg (279-304) Calcium Level 8.6 mg/dL (8.5-10.1) Total Bilirubin 0.5 mg/dL (0.2-1.0) Aspartate Amino Transf (AST/SGOT) 20 U/L (15-37) Alanine Aminotransferase (ALT/SGPT) 21 U/L (14-59) Alkaline Phosphatase 95 U/L (46-116) Total Protein 8.0 g/dL (6.4-8.2) Albumin 3.3 g/dL (3.4-5.0) Albumin/Globulin Ratio 0.7 (1.0-1.7) Glucose (Fingerstick) 547 mg/dL (70-99) 319 mg/dL (70-99) Urine Collection Type Unknown Urine Color Yellow Urine Clarity Clear Urine pH 6.5 Urine Specific Kouts >=1.030 Urine Protein Negative mg/dL (NEG-TRACE) Urine Glucose (UA) >=1000 mg/dL (NEG) Urine Ketones (Stick) Negative mg/dL (NEG) Urine Blood Trace (NEG) Urine Nitrite Negative (NEG) Urine Bilirubin Negative (NEG) Urine Urobilinogen Dipstick 0.2 mg/dL (0.2 mg/dL) Urine Leukocyte Esterase Negative (NEG) Urine RBC 1-2 /HPF (0-2) Urine WBC 1-4 /HPF (0-4) Urine Squamous Epithelial Cells Few /LPF Urine Bacteria 0 /HPF (0-FEW) Urine Yeast Present /HPF Test 12/18/16 18:28 12/18/16 19:31 12/18/16 23:29 12/19/16 03:37 Glucose (Fingerstick) 240 mg/dL (70-99) 198 mg/dL (70-99) 214 mg/dL (70-99) 229 mg/dL (70-99) Test 12/19/16 04:20 12/19/16 07:36 12/19/16 10:56 White Blood Count 6.6 x10^3/uL (4.0-11.0) Red Blood Count 4.60 x10^6/uL (3.50-5.40) Hemoglobin 10.4 g/dL (12.0-15.5) Hematocrit 32.1 % (36.0-47.0) Mean Corpuscular Volume 70 fL (79-100) Mean Corpuscular Hemoglobin 23 pg (25-35) Mean Corpuscular Hemoglobin Concent 33 g/dL (31-37) Red Cell Distribution Width 16.7 % (11.5-14.5) Platelet Count 315 x10^3/uL (140-400) Neutrophils (%) (Auto) 49 % (31-73) Lymphocytes (%) (Auto) 38 % (24-48) Monocytes (%) (Auto) 10 % (0-9) Eosinophils (%) (Auto) 2 % (0-3) Basophils (%) (Auto) 1 % (0-3) Neutrophils # (Auto) 3.2 x10^3uL (1.8-7.7) Lymphocytes # (Auto) 2.5 x10^3/uL (1.0-4.8) Monocytes # (Auto) 0.7 x10^3/uL (0.0-1.1) Eosinophils # (Auto) 0.1 x10^3/uL (0.0-0.7) Basophils # (Auto) 0.1 x10^3/uL (0.0-0.2) Sodium Level 140 mmol/L (136-145) Potassium Level 3.6 mmol/L (3.5-5.1) Chloride Level 107 mmol/L (98-107) Carbon Dioxide Level 23 mmol/L (21-32) Anion Gap 10 (6-14) Blood Urea Nitrogen 7 mg/dL (7-20) Creatinine 0.5 mg/dL (0.6-1.0) Estimated GFR (Cockcroft-Gault) 139.6 Glucose Level 215 mg/dL (70-99) Calcium Level 8.1 mg/dL (8.5-10.1) Glucose (Fingerstick) 240 mg/dL (70-99) 148 mg/dL (70-99) Laboratory Tests Test 12/18/16 15:10 12/18/16 15:11 12/18/16 15:47 12/18/16 17:13 White Blood Count 6.4 x10^3/uL (4.0-11.0) Red Blood Count 4.93 x10^6/uL (3.50-5.40) Hemoglobin 11.2 g/dL (12.0-15.5) Hematocrit 35.4 % (36.0-47.0) Mean Corpuscular Volume 72 fL (79-100) Mean Corpuscular Hemoglobin 23 pg (25-35) Mean Corpuscular Hemoglobin Concent 32 g/dL (31-37) Red Cell Distribution Width 16.9 % (11.5-14.5) Platelet Count 332 x10^3/uL (140-400) Neutrophils (%) (Auto) 61 % (31-73) Lymphocytes (%) (Auto) 27 % (24-48) Monocytes (%) (Auto) 10 % (0-9) Eosinophils (%) (Auto) 1 % (0-3) Basophils (%) (Auto) 1 % (0-3) Neutrophils # (Auto) 3.9 x10^3uL (1.8-7.7) Lymphocytes # (Auto) 1.8 x10^3/uL (1.0-4.8) Monocytes # (Auto) 0.6 x10^3/uL (0.0-1.1) Eosinophils # (Auto) 0.1 x10^3/uL (0.0-0.7) Basophils # (Auto) 0.1 x10^3/uL (0.0-0.2) Platelet Estimate Adequate (ADEQUATE) Hypochromasia Mod Poikilocytosis Slight Anisocytosis Slight Microcytosis Mod Sodium Level 134 mmol/L (136-145) Potassium Level 3.5 mmol/L (3.5-5.1) Chloride Level 99 mmol/L (98-107) Carbon Dioxide Level 21 mmol/L (21-32) Anion Gap 14 (6-14) Blood Urea Nitrogen 8 mg/dL (7-20) Creatinine 0.8 mg/dL (0.6-1.0) Estimated GFR (Cockcroft-Gault) 81.2 BUN/Creatinine Ratio 10 (6-20) Glucose Level 621 mg/dL (70-99) Serum Osmolality 306 mOsm/Kg (279-304) Calcium Level 8.6 mg/dL (8.5-10.1) Total Bilirubin 0.5 mg/dL (0.2-1.0) Aspartate Amino Transf (AST/SGOT) 20 U/L (15-37) Alanine Aminotransferase (ALT/SGPT) 21 U/L (14-59) Alkaline Phosphatase 95 U/L (46-116) Total Protein 8.0 g/dL (6.4-8.2) Albumin 3.3 g/dL (3.4-5.0) Albumin/Globulin Ratio 0.7 (1.0-1.7) Glucose (Fingerstick) 547 mg/dL (70-99) 319 mg/dL (70-99) Urine Collection Type Unknown Urine Color Yellow Urine Clarity Clear Urine pH 6.5 Urine Specific Kouts >=1.030 Urine Protein Negative mg/dL (NEG-TRACE) Urine Glucose (UA) >=1000 mg/dL (NEG) Urine Ketones (Stick) Negative mg/dL (NEG) Urine Blood Trace (NEG) Urine Nitrite Negative (NEG) Urine Bilirubin Negative (NEG) Urine Urobilinogen Dipstick 0.2 mg/dL (0.2 mg/dL) Urine Leukocyte Esterase Negative (NEG) Urine RBC 1-2 /HPF (0-2) Urine WBC 1-4 /HPF (0-4) Urine Squamous Epithelial Cells Few /LPF Urine Bacteria 0 /HPF (0-FEW) Urine Yeast Present /HPF Test 12/18/16 18:28 12/18/16 19:31 12/18/16 23:29 12/19/16 03:37 Glucose (Fingerstick) 240 mg/dL (70-99) 198 mg/dL (70-99) 214 mg/dL (70-99) 229 mg/dL (70-99) Test 12/19/16 04:20 12/19/16 07:36 12/19/16 10:56 White Blood Count 6.6 x10^3/uL (4.0-11.0) Red Blood Count 4.60 x10^6/uL (3.50-5.40) Hemoglobin 10.4 g/dL (12.0-15.5) Hematocrit 32.1 % (36.0-47.0) Mean Corpuscular Volume 70 fL (79-100) Mean Corpuscular Hemoglobin 23 pg (25-35) Mean Corpuscular Hemoglobin Concent 33 g/dL (31-37) Red Cell Distribution Width 16.7 % (11.5-14.5) Platelet Count 315 x10^3/uL (140-400) Neutrophils (%) (Auto) 49 % (31-73) Lymphocytes (%) (Auto) 38 % (24-48) Monocytes (%) (Auto) 10 % (0-9) Eosinophils (%) (Auto) 2 % (0-3) Basophils (%) (Auto) 1 % (0-3) Neutrophils # (Auto) 3.2 x10^3uL (1.8-7.7) Lymphocytes # (Auto) 2.5 x10^3/uL (1.0-4.8) Monocytes # (Auto) 0.7 x10^3/uL (0.0-1.1) Eosinophils # (Auto) 0.1 x10^3/uL (0.0-0.7) Basophils # (Auto) 0.1 x10^3/uL (0.0-0.2) Sodium Level 140 mmol/L (136-145) Potassium Level 3.6 mmol/L (3.5-5.1) Chloride Level 107 mmol/L (98-107) Carbon Dioxide Level 23 mmol/L (21-32) Anion Gap 10 (6-14) Blood Urea Nitrogen 7 mg/dL (7-20) Creatinine 0.5 mg/dL (0.6-1.0) Estimated GFR (Cockcroft-Gault) 139.6 Glucose Level 215 mg/dL (70-99) Calcium Level 8.1 mg/dL (8.5-10.1) Glucose (Fingerstick) 240 mg/dL (70-99) 148 mg/dL (70-99) Medications Current Medications Sodium Chloride 1,000 ml @ 1,000 mls/hr Q1H IV Last administered on 12/18/16 15:45; Admin Dose 1,000 MLS/HR; Start 12/18/16 at 15:29; Stop 12/18/16 at 17:28 ; Status DC Fentanyl Citrate (Fentanyl 2ml Vial) 50 mcg PRN Q15MIN PRN IV PAIN GREATER THAN 3/10; Start 12/18/16 at 15:30; Stop 12/19/16 at 15:29 Ondansetron HCl (Zofran) 4 mg 1X ONCE IV Last administered on 12/18/16 15:45 ; Admin Dose 4 MG; Start 12/18/16 at 15:30; Stop 12/18/16 at 15:33; Status DC Insulin Human Regular 150 ml @ 0 mls/hr 1X ONCE IV Last administered on 17:23; Admin Dose 5.2 MLS/HR; Start 12/18/16 at 16:45; Stop 12/18/16 at 19: 44; Status DC Ondansetron HCl (Zofran) 4 mg PRN Q8HRS PRN IV NAUSEA/VOMITING; Start 12/18/16 at 17:30; Stop 12/19/16 at 17:29 Sodium Chloride 1,000 ml @ 150 mls/hr Q6H40M IV ; Start 12/18/16 at 17:21; Stop 12/19/16 at 11:21; Status DC Acetaminophen (Tylenol) 650 mg PRN Q4HRS PRN PO FEVER; Start 12/18/16 at 17:30 ; Stop 12/19/16 at 17:29 Sodium Chloride 1,000 ml @ 125 mls/hr Q8H IV Last administered on 12/19/16 10 :53; Admin Dose 125 MLS/HR; Start 12/18/16 at 19:45 Insulin Aspart (NovoLOG) 0-9 UNITS TIDWMEALS SQ Last administered on 12/19/16 08:25; Admin Dose 5 UNITS; Start 12/19/16 at 08:00 Dextrose (Dextrose 50%-Water Syringe) 12.5 gm PRN Q15MIN PRN IV SEE COMMENTS; Start 12/18/16 at 19:45 Calcium Carbonate/ Glycine (Tums) 500 mg PRN AFTMEALHC PRN PO HEARTBURN / GAS; Start 12/19/16 at 07:00 Acetaminophen/ Hydrocodone Bitart (Lortab 7.5/325) 1 tab PRN Q6HRS PRN PO PAIN ; Start 12/19/16 at 07:00 Non-Formulary Medication 100 unit TIDAC SQ ; Start 12/19/16 at 07:30; Status UNV Naproxen (Naprosyn) 500 mg BIDWMEALS PO Last administered on 12/19/16t 08:24; Admin Dose 500 MG; Start 12/19/16 at 08:00 Acetaminophen (Tylenol) 650 mg PRN Q6HRS PRN PO FEVER; Start 12/19/16 at 11:15 Ondansetron HCl (Zofran) 4 mg PRN Q6HRS PRN IV NAUSEA/VOMITING; Start 12/19/16 at 11:15 Morphine Sulfate 2 mg PRN Q2HR PRN IV PAIN; Start 12/19/16 at 11:15 Tramadol HCl (Ultram) 50 mg PRN Q6HRS PRN PO PAIN; Start 12/19/16 at 11:15 Hydralazine HCl (Apresoline) 10 mg PRN Q4HRS PRN IVP ELEVATED BP, SEE COMMENTS ; Start 12/19/16 at 11:15 Docusate Sodium (Colace) 100 mg PRN DAILY PRN PO CONSTIPATION; Start 12/19/16 at 11:15 Insulin Detemir (Levemir) 40 units QHS SQ ; Start 12/19/16 at 21:00 Active Scripts Active Naproxen 500 Mg Tablet. 1 Tab PO BID Lortab 7.5-325 mg Tablet (Hydrocodone/Acetaminophen) 1 Each Tablet 1 Tab PO PRN Q6HRS PRN Clindamycin Hcl 150 Mg Capsule 3 Cap PO TID Reported Novolog (Insulin Aspart) 100 Unit/1 Ml Cartridge 100 Unit SQ TIDAC Tums (Calcium Carbonate) 200 Mg Tab.chew 200 Mg PO PRN PRN Vitals/I & O Vital Sign - Last 24 Hours 12/18/16 12/18/16 12/18/16 12/18/16 15:08 16:00 17:00 18:00 Temp 98.7 98.7 Pulse 123 98 94 92 Resp 16 18 16 16 B/P (MAP) 148/95 (112) 141/85 (103) 136/82 (100) Pulse Ox 100 99 100 100 O2 Delivery Room Air Room Air Room Air Room Air 12/18/16 12/18/16 12/18/16 12/18/16 19:25 23:18 23:48 23:52 Temp 97.9 98.5 97.9 97.9 98.5 97.9 Pulse 86 87 86 Resp 18 20 18 B/P (MAP) 119/79 (92) 110/77 (88) 119/79 (92) Pulse Ox 100 96 100 O2 Delivery Room Air Room Air Room Air Room Air 12/19/16 12/19/16 12/19/16 12/19/16 03:45 07:00 08:29 11:00 Temp 97.4 98.0 98.0 97.4 98.0 98.0 Pulse 91 80 85 Resp 18 22 20 B/P (MAP) 119/85 (96) 117/85 (96) 117/85 (96) Pulse Ox 96 98 98 O2 Delivery Room Air Room Air Room Air Room Air CORAZON MUNROE MD December 19, 2016 13:19
[2016-12-19] MEDS ORDERED: ENOXAPARIN 40 MG/0.4 ML SYRINGE. SQ SCH (14:00)
[2016-12-19 15:00] VITALS: BP 120/80
[2016-12-19 19:00] VITALS: BP 124/83
[2016-12-19] MEDS ORDERED: INSULIN DETEMIR 300 UNITS/3 ML INSULN.PEN. SQ SCH (21:00)
[2016-12-20] MEDS: IV NORMAL SALINE 1000ML BAG 1,000 ML IV SCH ×2 (03:12→11:45)
[2016-12-20 05:57] LABS: BASO # 0.1 x10^3/uL (0.0-0.2); BASO % 1 % (0-3); EOS % 2 % (0-3); HEMATOCRIT 29.1 % (36.0-47.0); HEMOGLOBIN 9.1 g/dL (12.0-15.5); LYMPH # 1.8 x10^3/uL (1.0-4.8); LYMPH % 37 % (24-48); MEAN CORPUSCULAR HEMOGLOBIN 23 pg (25-35); MEAN CORPUSCULAR HGB CONC 31 g/dL (31-37); MEAN CORPUSCULAR VOLUME 72 fL (79-100); MONO % 14 % (0-9); NEUT % 46 % (31-73); PLATELET COUNT 227 x10^3/uL (140-400); RED BLOOD COUNT 4.04 x10^6/uL (3.50-5.40); RED CELL DISTRIBUTION WIDTH 16.7 % (11.5-14.5); WHITE BLOOD COUNT 4.8 x10^3/uL (4.0-11.0)
[2016-12-20 06:23] LABS: % SAT IRON 4 % (15-34); IRON,SERUM 13 ug/dL (50-170)
[2016-12-20 06:37] LABS: CALCIUM 7.8 mg/dL (8.5-10.1); CREATININE 0.4 mg/dL (0.6-1.0); GFR 180.6; POTASSIUM 3.3 mmol/L (3.5-5.1)
[2016-12-20 07:00] VITALS: BP 118/82
[2016-12-20] MEDS: INSULIN ASPART 300 UNITS/3 ML INSULN.PEN SQ SCH (08:00)
[2016-12-20] MEDS: NAPROXEN 500 MG TABLET PO SCH ×2 (08:00→10:36)
[2016-12-20 08:46] LABS: FOLATE 3.49 ng/ml (3.2-20.0)
[2016-12-20] MEDS ORDERED: POTASSIUM CHLORIDE 20 MEQ TABLET.ER. PO ONE (10:15)
[2016-12-20] MEDS ORDERED: FERR325T72 PO (10:17)
[2016-12-20] MEDS ORDERED: MECL12.52 PO (10:17)
[2016-12-20 10:45] VITALS: BP 125/84
[2016-12-20] MEDS ORDERED: FERROUS SULFATE 325 MG TABLET. PO SCH (12:00)
--- NOTE | 2016-12-20 12:20 | PDOC3 ---
Discharge Summary [facility] Date of Admission: December 18, 2016 Discharge Date: December 20, 2016 Admitting Diagnosis 1. Uncontrolled type 1 DM 2. Dehydration. 3. mild malnutrition 4. microcytic anemia, iron deficiency 2/2 menstrual period likely 5. vertigo, BPV Problems: Final Diagnosis Brief Hospital Course Ms. Steward is a 36 old F, dm1, off insulin which is levemir 50u at night only for a while 2/2 financial issues, comes here for abd pain , N/V, was found glucose >600. no DKA pt got several hours of insulin drip, Glucose is better. Hba1c 11.7. SW recommend to a [facility]riism for free insulin. also has mild vertigo, responding to meclazine. dc home with meclazine prn, iron po. fu with pcp, will try to get insulin from a [facility]ism liliana plan. dc time 40min. General: Alert, Oriented X3, Cooperative Heart: Regular rate, Normal S1, Normal S2 Lungs: Clear Abdomen: Normal bowel sounds, Soft Extremities: No clubbing Patient History: Patient reports no known family medical history. Problems: Disposition home CONDITION AT DISCHARGE: Improved Diet ADA Scheduled Ferrous Sulfate (Feosol), 325 MG PO DAILYWBKFT Insulin Aspart (Novolog), 100 UNIT SQ TIDAC, (Reported) Scheduled PRN Calcium Carbonate (Tums), 200 MG PO PRN PRN for HEARTBURN / GAS, (Reported) Hydrocodone/Acetaminophen (Lortab 7.5-325 mg Tablet), 1 TAB PO PRN Q6HRS PRN for PAIN Meclizine Hcl (Meclizine Hcl), 12.5 MG PO PRN Q6HRS PRN for DIZZINESS Discontinued Medications Clindamycin Hcl (Clindamycin Hcl), 3 CAP PO TID Naproxen (Naproxen), 1 TAB PO BID Follow Up pcp CORAZON Chapa MD December 20, 2016 12:20
== END 2016-12-20 12:51 | disposition home or self-care (01) | DRG 638 ==
LOC: ER 14:56 → ED HOLD 16:34 → 1 WEST ICU 18:38 → 5 SOUTH 19:28
PROVIDERS: ADMIT Internal Medicine; ATTEND Internal Medicine
DX: E10.65 Type 1 diabetes mellitus with hyperglycemia (principal); E44.1 Mild protein-calorie malnutrition; H81.10 Benign paroxysmal vertigo, unspecified ear; D50.9 Iron deficiency anemia, unspecified; E86.0 Dehydration; Z79.4 Long term (current) use of insulin; Z59.9 Problem related to housing and economic circumstances, unspecified; Z68.25 Body mass index [BMI] 25.0-25.9, adult
CPT/HCPCS: 36415; 80048; 80053; 81001; 82607; 82728; 82746; 82962; 83036; 83540; 83550; 83930; 85007; 85027; 93005; 96361; 96365; 96366; 96372; 96375; J1815; J2405; J7030; 99285-25